=== PATIENT | male | born 1980 | race Caucasian/White ===

== ENCOUNTER 2020-09-17 16:02 | Outpatient (REF) | payer MEDICAID, SELFPAY ==
[2020-09-21 18:55] LABS: COVID-19 RT-PCR Result NEGATIVE (Negative)
== END 2020-09-17 16:22 ==
LOC: NCHCN 16:02
PROVIDERS: PCP Nurse Practitioner Family; Visit Provider Nurse Practitioner Family
DX: Z11.59 Encounter for screening for other viral diseases (principal)
CPT/HCPCS: U0003